=== PATIENT | male | born 1985 | race African-American/Black ===

== ENCOUNTER 2017-05-31 18:14 | Emergency (ER) | payer MEDICAID ==
[~2017-05-31] VITALS: Ht 172.7 cm; Wt 70.0 kg
[2017-05-31] MEDS ORDERED: TETANUS, DIPHTHERIA, PERTUSSIS VAC/PF 0.5ML (>7YR OLD) IM ONE (19:00)
[2017-05-31] MEDS ORDERED: LIDOCAINE HCL 1% 20ML VIAL (Pyxis) INJ MC ONE (19:00)
[2017-05-31] MEDS ORDERED: IBUPROFEN 800MG TABLET PO ONE (19:00)
[2017-05-31] MEDS ORDERED: BACITRACIN ZINC OINT UDPKT TOP ONE (19:00)
[2017-05-31 20:26] VITALS: BP 122/70
== END 2017-05-31 20:26 | disposition home or self-care (01) ==
LOC: ER 18:25
DX: S61.511A Laceration without foreign body of right wrist, initial encounter (principal); W26.0XXA Contact with knife, initial encounter; Y93.89 Activity, other specified; Y92.89 Other specified places as the place of occurrence of the external cause; Y99.8 Other external cause status
CPT/HCPCS: 12001; 73110; 73130; 90471; 90715; 99284; J3490; Z7610

== ENCOUNTER 2017-06-02 23:42 | Emergency (ER) | payer MEDICAID | END 2017-06-03 00:08 | disposition left against medical advice (07) | LOC: ER 23:42 | DX: Z53.21 Procedure and treatment not carried out due to patient leaving prior to being seen by health care provider (principal) ==